=== PATIENT | male | born 1985 | race Caucasian/White ===

== ENCOUNTER 2022-03-25 18:29 | Emergency (ER) | payer OTHER, SELFPAY ==
[2022-03-25 18:36] VITALS: BP 130/72; PULSE 88; RESP 20; TEMP 37.2; O2SAT 98; BMI 23.1
[2022-03-25 19:37] LABS: Influenza A - CEPHEID Flu A POSITIVE (NEGATIVE); Influenza B - CEPHEID Flu B NEGATIVE (NEGATIVE); Respiratory Syncytial Virus Negative (Negative)
[2022-03-25 19:38] LABS: COVID-19 CEPHEID 4-PLEX PCR Negative (Negative)
--- NOTE | 2022-03-25 19:59 | ED.GENADULT ---
HPI - General Adult General Chief complaint: Upper Respiratory Symptoms Stated complaint: 89f FEVER X 3 DAYS, SORE THROAT, DYSPNEA, CONGEST Time Seen by Provider: 03/25/22 19:50 Source: patient Mode of arrival: Ambulatory Limitations: no limitations History of Present Illness HPI narrative: 36-year-old male here for evaluation of approximately 3 days of a fever, sore throat, congestion and shortness of breath. He has been doing Tylenol at home. Highest temperature is 103?. Review of Systems Constitutional Constitutional: Reports system reviewed and no additional complaints, except as documented ENT Ears, Nose, Mouth, and Throat: Reports system reviewed and no additional complaints, except as documented Cardiovascular Cardiovascular: Reports system reviewed and no additional complaints, except as documented Respiratory Respiratory: Reports system reviewed and no additional complaints, except as documented Gastrointestinal Gastrointestinal: Reports system reviewed and no additional complaints, except as documented Integumentary/Breasts Skin/Breast: Reports system reviewed and no additional complaints, except as documented Patient History Social History Smoking Status: Never smoker Smoking Status: Never smoker Substance Use Type: does not use Exam Initial Vital Signs Initial Vital Signs: Vital Signs Temperature 99 F 03/25/22 18:36 Pulse Rate 88 03/25/22 18:36 Respiratory Rate 20 03/25/22 18:36 Blood Pressure 130/72 03/25/22 18:36 Pulse Oximetry 98 03/25/22 18:36 Oxygen Delivery Method 03/25/22 18:36 Const General: cooperative, comfortable, well developed and No ill appearing HENMT Head: normal to inspection and normocephalic Mouth: oral mucosae normal and moist mucous membranes Throat: posterior oropharynx normal Neck Lymphatic: No lymphadenopathy Resp Effort & Inspection: normal respiratory effort Auscultation: clear to auscultation bilaterally Cardio Rate: regular rate Rhythm: regular rhythm GI Inspection: normal to inspection Skin General: no rashes or lesions noted Neuro General: patient alert, patient awake and moves all extremities Extrem General: normal to inspection Course Orders Ordered: ED Orders 03/25/22 18:39 Covid-19 + FLU A/B + RSV - PCR Stat Vital Signs Vital signs: Vital Signs - 8 hr 03/25/22 18:36 Temperature 99 F Pulse Rate 88 Respiratory Rate 20 Blood Pressure 130/72 Pulse Oximetry 98 Oxygen Delivery Method Room Air Medical Decision Making Lab Data Labs: Lab Results 03/25/22 Range/Units 18:39 SARS-CoV-2 (PCR) Negative (Negative) Influenza A (RT-PCR) Flu a positive H (NEGATIVE) Influenza B (RT-PCR) Flu b negative (NEGATIVE) RSV (PCR) Negative (Negative) MDM Narrative Medical decision making narrative: Flu A positive. This does explain his symptoms. No indication for antibiotics. Lungs are clear. Patient was informed of his diagnosis. He was given return precautions. He expressed understanding and agreement. Discharge Plan Departure Patient Disposition: Home Clinical Impression: Influenza A Instructions: DI for Influenza -- Adult Activity Restrictions/Additional Instructions: Sure to increase your fluid intake. You can take Tylenol/ibuprofen for any headaches or fevers or body aches. Return to the emergency department for any new or worsening symptoms. Visit Report Forms: Patient Portal/API
== END 2022-03-25 20:05 | disposition home or self-care (01) ==
PROVIDERS: Emergency Provider Emergency Medicine
DX: J10.1 Influenza due to other identified influenza virus with other respiratory manifestations (principal)
CPT/HCPCS: 0241U; 99281; 99282